=== PATIENT | male | born 1975 | race Caucasian/White ===

== ENCOUNTER 2021-11-24 11:34 | Emergency (ER) | payer SELFPAY ==
[2021-11-24] MEDS ORDERED: Acetaminophen 500 MG TAB ONE (11:59)
[2021-11-24] MEDS ORDERED: Lidocaine 2% 20 ml MDV ONE (13:32)
[2021-11-24] MEDS ORDERED: Fentanyl 100 MCG/2 ML VIAL ONE (13:41)
[2021-11-24 13:54] LABS: #Basophils 0.1 thou/uL (0.0-0.2); #Lymphocytes 1.9 thou/uL (1.20-3.40); #Monocytes 0.3 thou/uL (0.11-0.59); #Neutrophils 7.5 thou/uL (1.40-6.50); %Basophils 0.7 % (0.0-1.0); %Eosinophils 0.4 % (0.0-10.0); %Lymphocytes 19.2 % (21.0-51.0); %Monocytes 3.4 % (0.0-10.0); %Neutrophils 76.3 % (42.0-75.0); Hemoglobin 16.6 g/dL (14.0-18.0); Mean Corpuscular HGB CONC 33.1 g/dL (32.0-36.0); Mean Corpuscular Volume 90.5 fL (78.0-98.0); Mean Platelet Volume 7.9 fL (7.4-10.4); Platelet Count 142 thou/uL (130-400); RBC Distribution Width 11.4 % (11.5-14.5); Red Blood Cell (RBC) Count 5.53 mill/uL (4.70-6.10); White Blood Cell (WBC) Count 9.8 thou/uL (4.8-10.8)
[2021-11-24 13:55] LABS: MDiff Complete? YES
[2021-11-24 13:56] LABS: ALT (SGPT) 26 U/L (8-55); AST (SGOT) 22 U/L (5-34); Albumin 4.4 g/dL (3.5-5.0); Alkaline Phosphatase 91 U/L (40-110); Anion Gap 19 mmol/L (10-20); BUN (Urea Nitrogen) 10 mg/dL (8.9-20.6); Bilirubin, Total 0.9 mg/dL (0.2-1.2); Calc. Creatinine Clearance 0 mL/min (70-130); Calcium 9.3 mg/dL (7.8-10.44); Carbon Dioxide 22 mmol/L (22-29); Chloride 103 mmol/L (98-107); Globulin 3.6 g/dL (2.4-3.5); Glucose 103 mg/dL (70-105); Potassium 4.2 mmol/L (3.5-5.1); Sodium 140 mmol/L (136-145)
== END 2021-11-24 14:25 | disposition short-term general hospital (02) ==
LOC: BURERS 11:34
DX: S06.0X0A Concussion without loss of consciousness, initial encounter (principal); S02.19XA Other fracture of base of skull, initial encounter for closed fracture; S02.832A Fracture of medial orbital wall, left side, initial encounter for closed fracture; S02.31XA Fracture of orbital floor, right side, initial encounter for closed fracture; S01.312A Laceration without foreign body of left ear, initial encounter; S09.8XXA Other specified injuries of head, initial encounter; K21.9 Gastro-esophageal reflux disease without esophagitis; Z79.899 Other long term (current) drug therapy; W55.22XA Struck by cow, initial encounter; Y93.I9 Activity, other involving external motion
CPT/HCPCS: 12013; 70450; 70486; 71045; 80053; 85025; 96374; J3010